=== PATIENT | female | born 1995 | race Caucasian/White ===

== ENCOUNTER 2017-06-19 20:20 | Emergency (ER) | payer OTHER ==
[2017-06-19] MEDS ORDERED: Ketorolac 10 MG Tab PO ONE (20:21)
[2017-06-19] MEDS ORDERED: Cyclobenzaprine 10 MG Tab PO ONE (20:21)
[2017-06-19] MEDS: Ketorolac 30 MG/ML SDV IVPUSH ONE (20:49)
[2017-06-19] MEDS: Ketorolac 30 MG/ML SDV ONE (20:55)
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
[2017-06-19] MEDS: Take Home: Ketorolac 10 MG Tab, 4 Tab Pack PO ONE (21:46)
[2017-06-19] MEDS: Take Home: Cyclobenzaprine 10 MG Tab, 4 Tab Pack PO ONE (22:10)
== END 2017-06-19 21:50 | disposition home or self-care (01) ==
LOC: CC.ED 20:20
DX: S16.1XXA Strain of muscle, fascia and tendon at neck level, initial encounter (principal); V49.9XXA Car occupant (driver) (passenger) injured in unspecified traffic accident, initial encounter
CPT/HCPCS: 70450; 72125; 96372; 96374; 99285; A9270-GY; J1885; J2360